=== PATIENT | female | born 1985 | race Caucasian/White ===

== ENCOUNTER 2021-11-22 16:06 | Emergency (ER) | payer OTHER ==
[2021-11-22 16:18] VITALS: BP 142/80; PULSE 80; RESP 18; TEMP 98.5; BMI 28.7
== END 2021-11-22 19:02 | disposition home or self-care (01) ==
LOC: JERFT 16:06
DX: S62.644A Nondisplaced fracture of proximal phalanx of right ring finger, initial encounter for closed fracture (principal); S63.254A Unspecified dislocation of right ring finger, initial encounter; Y93.64 Activity, baseball
CPT/HCPCS: 73140-TC-RT-FY; 99283-25